=== PATIENT | male | born 1955 | race Caucasian/White ===

== ENCOUNTER → 2018-09-18 | Outpatient (CLI) | payer BC ==
[~2018-09-18] MED LIST: REGADENOSON 0.4 MG/5 ML DISP.SYRIN. IV ONE
--- NOTE | 2018-09-18 12:04 | PCVCIMAG ---
APPROVED REPORT Study performed: 09/18/2018 11:25:31 EXAM: Comprehensive 2D, Doppler, and color-flow Echocardiogram Patient Location: Echo lab Status: routine BSA: 2.15 HR: 61 bpmBP: 140/90 mmHg Rhythm: NSR Other Information Study Quality: Adequate Risk Factors: Cardiac Risk Factors: HTN, Hyperlipidemia Indications Dyspnea Elevated calcium score, Family history of CAD, CYNDEE 2D Dimensions IVSd: 15.23 (7-11mm)LVOT Diam: 18.75 (18-24mm) LVDd: 36.92 mm PWd: 14.00 (7-11mm)Ascending Ao: 31.84 (22-36mm) LVDs: 23.22 (25-40mm) Left Atrium: 37.36 (27-40mm) Aortic Root: 28.44 mm LV Single Plane 4CH: 56.18 % LV Single Plane 2CH: 57.68 % Biplane EF: 57.4 % Volumes Left Atrial Volume (Systole) Single Plane 4CH: 68.94 mLSingle Plane 2CH: 50.97 mL LA ESV Index: 29.00 mL/m2 Aortic Valve AoV Peak Denzel.: 1.24 m/s AO Peak Gr.: 6.16 mmHgLVOT Max P.91 mmHg LVOT Max V: 1.22 m/s FRANKI Vmax: 2.70 cm2 Mitral Valve E/A Ratio: 0.9 MV Decel. Time: 239.02 ms MV E Max Denzel.: 0.74 m/s MV A Denzel.: 0.86 m/s IVRT: 89.97 ms TDI E/Lateral E': 8.22E/Medial E': 12.33 Medial E' Denzel.: 0.06 m/s Lateral E' Denzel.: 0.09 m/s Pulmonary Valve PV Peak Gr.: 2.27 mmHg Pulmonary Vein P Vein S: 0.66 m/sP Vein A: 0.45 m/s P Vein D: 0.60 m/sP Vein A Dur.: 100.3 msec P Vein S/D Ratio: 1.10 Tricuspid Valve TR Peak Denzel.: 2.42 m/s TR Peak Gr.: 23.52 mmHg Left Ventricle The left ventricle is normal size. There is normal LV segmental wall motion. Mild concentric left ventricular hypertrophy. Left ventricular systolic function is normal. The left ventricular ejection fraction is within the normal range. LVEF is 60-65%. The left ventricular diastolic function is normal. Right Ventricle The right ventricle is normal size. The right ventricular systolic function is normal. Atria The left atrium size is normal. The right atrium size is normal. Aortic Valve The aortic valve is normal in structure. No aortic regurgitation is present. There is no aortic valvular stenosis. Mitral Valve The mitral valve is normal in structure. Trace mitral regurgitation. No evidence of mitral valve stenosis. Tricuspid Valve The tricuspid valve is normal in structure. Trace tricuspid regurgitation. Pulmonary artery pressure is 30mmhg. Pulmonic Valve The pulmonary valve is normal in structure. Trace pulmonic regurgitation. Great Vessels The aortic root is normal in size. IVC is normal in size and collapses >50% with inspiration. Pericardium There is no pericardial effusion. <Conclusion> The left ventricle is normal size. LVEF is 60-65%. The aortic valve is normal in structure. The mitral valve is normal in structure. Trace mitral regurgitation. The tricuspid valve is normal in structure. Trace tricuspid regurgitation. Pulmonary artery pressure is 30mmhg. The pulmonary valve is normal in structure. Trace pulmonic regurgitation. There is no pericardial effusion.
--- NOTE | 2018-09-18 16:33 | PCVCIMAG ---
APPROVED REPORT Imaging Protocol: Rest Tc-99m/Stress Tc-99m 1 day Study performed: 09/18/2018 12:45:38 Indication: CAD , Dyspnea, Lightheadedness Patient Location: Out-Patient Stress Nurse: Maricarmen Garcia RN, Daisha Butterfield RN [place] Tech:Jolynn BallHARSHA estebanMT Ht: 5 ft 8 in Wt: 220 lbs BSA: 2.13 m2 HR: 72 bpm BP: 140/88 mmHg BMI: 33.4 Rhythm: Sinus Rhythm, RBBB Medical History Medical History: Former Smoker, CAD, High Ca Score Medications: Lisinopril, Crestor Allergies: No known drug allergies Cardiac Risk Factors: Age Pretest Chest Pain Characteristics: No chest pain Exercise History: Physically active Resting Data Rest SPECT myocardial perfusion imaging was performed in supine position 45 minutes following the intravenous injection of 10.8 mCi of Tc-99m Sestamibi. Time of rest injection: 1200 Date: 09/18/2018 Administration Route: IV Administration Site: Right AC Exercise Stress At peak stress, the patient was injected intravenously with 35.7mCi of Tc-99m Sestamibi. Time of stress injection: 1330 Date: 09/18/2018 Administration Route: IV Administration Site: Right AC Patient continued to exercise for 1 minute(s). Gated Stress SPECT was performed 30 minutes after stress injection. The images were gated to evaluate regional wall motion and calculate left ventricular ejection fraction. Stress Test Details Stress Test: Exercise stress testing was performed using a Ra protocol. HRMax Heart Rate (APMHR): 159 bpm Resting HR: 72 bpmTarget HR (85% APMHR): 135 bpm Max HR Achieved: 148 bpm % of APMHR: 93 Recovery HR: 87 bpm BP Resting BP: 140/88 mmHg Max BP: 172/72 mmHg Recovery BP: 153/72 mmHg BP response to stress: Normal blood pressure response to stress. ECG Resting ECG: Sinus Rhythm, RBBB Stress ECG: Sinus Tachycardia, RBBB ST Change: Nondiagnostic resting ST abnormalities Arrhythmia: PVC's Recovery ECG: Sinus Rhythm, RBBB Recovery ST Change: Nondiagnostic resting ST abnormalities Clinical Reason for Termination: Maximal effort Stress Symptoms: Dyspnea, Lightheaded Exercise duration: 12 min 00 sec Exercise capacity: 13.6 METs Overall Exercise Capacity for Age: Good Scale: Active Angina Score: None Symptoms resolved during recovery. Stress ECG Conclusion 1. Subjectively negative for ischemia 2. Elective cardiographic C negative for ischemia 3. Satisfactory functional capacity Study Data Post stress, the left ventricular ejection was 71%.. SSS: 1 SRS: 2 SDS: 0 TID = 0.78. Perfusion There is a large area of moderately reduced uptake in the entire and apical segment of the inferior wall which is seen on the stress images as well as the resting images. This area thickens and moves normally and is most consistent with attenuation artifact. Wall Motion Normal left ventricular wall motion. Nuclear Conclusion ECG Findings: negative for ischemia Clinical Findings: negative for ischemia Nuclear Findings: negative for ischemia Exercise Capacity: normal Left Ventricular Function: normal 1. Low risk study 2. Post stress left ventricular ejection fraction of 71% without wall motion abnormalities <Conclusion> 1. Subjectively negative for ischemia 2. Elective cardiographic C negative for ischemia 3. Satisfactory functional capacity
== END | disposition home or self-care (01) ==
LOC: PCVCIMAG 11:26
PROVIDERS: ATTEND Internal Medicine
DX: R06.00 Dyspnea, unspecified (principal); R93.1 Abnormal findings on diagnostic imaging of heart and coronary circulation; G47.33 Obstructive sleep apnea (adult) (pediatric); Z82.49 Family history of ischemic heart disease and other diseases of the circulatory system
CPT/HCPCS: 78452; 93017; 93306; A9500; J2785